=== PATIENT | male | born 1970 | race Caucasian/White ===

== ENCOUNTER → 2016-07-17 | Outpatient (CLI) | payer BC | LOC: KOH-I 09:54 | DX: M66.272 Spontaneous rupture of extensor tendons, left ankle and foot (principal); S93.492D Sprain of other ligament of left ankle, subsequent encounter; S90.02XD Contusion of left ankle, subsequent encounter | CPT/HCPCS: 73721 ==

== ENCOUNTER → 2021-12-25 | Emergency (ER) | payer BC ==
[~2021-12-25] MED LIST: CARAFATE1 GM PO
[2021-12-25 10:25] LABS: HEMOGLOBIN 14.6 gm/dl (14.0-17.5); RED BLOOD COUNT 4.77 M/UL (4.20-5.50)
== END | disposition home or self-care (01) ==
LOC: ER1 09:25
PROVIDERS: Physician Assistant
DX: R07.89 Other chest pain (principal); R10.13 Epigastric pain; R42 Dizziness and giddiness; N28.9 Disorder of kidney and ureter, unspecified; Z20.822 Contact with and (suspected) exposure to COVID-19; J02.9 Acute pharyngitis, unspecified; E78.5 Hyperlipidemia, unspecified; F17.210 Nicotine dependence, cigarettes, uncomplicated; I10 Essential (primary) hypertension; Z79.899 Other long term (current) drug therapy
CPT/HCPCS: 70450; 71045; 80053; 82550; 82553; 83690; 84484; 85025; 85379; 87081; 87880; 93005; 96374; 99285; C9113; U0002